=== PATIENT | male | born 1970 | race Caucasian/White ===

== ENCOUNTER 2024-06-11 11:13 | Emergency (ER) | payer BC, SELFPAY ==
[2024-06-11 11:21] VITALS: BP 149/97
[2024-06-11 12:23] VITALS: BP 134/95
[2024-06-11 12:30] VITALS: BMI 35.2
[2024-06-11 12:59] LABS: % Basophils 0.2 % (0-2); % Eosinophils 0.2 % (0-6); % Immature Granulocytes 0.5 % (0-0.5); % Lymphocytes 9.9 % (20.5-51.1); % Monocytes 6.3 % (1.7-9.3); % Neutrophils 82.9 % (42.2-75.2); Absolute Immature Granulocytes 0.1 10^3/uL (0-0.05); Absolute Lymphocytes 1.3 10^3/uL (1.2-3.4); Absolute Monocytes 0.8 10^3/uL (0.1-0.6); Absolute Neutrophils 10.7 10^3/uL (1.4-6.5); Hematocrit 41.7 % (39.0-52.0); Hemoglobin 14.2 g/dL (13.0-18.0); Mean Corp Hgb Conc. 34.1 g/dL (33.0-37.0); Mean Corpuscular Hgb 29.9 pg (27.0-31.0); Mean Corpuscular Volume 87.8 fL (80.0-94.0); Mean Platelet Volume 9.7 fL (7.4-10.4); Nucleated Red Blood Cells % 0 % (-); Platelet Count 251 10^3/uL (130-400); Red Blood Cell Count 4.75 10^6/uL (4.70-6.10); Red Cell Dist. Width 13.2 % (11.5-14.5); White Blood Cell Count 12.9 10^3/uL (4.8-10.8)
[2024-06-11 13:00] LABS: ALT (SGPT) 26 U/L (0-50); AST (SGOT) 21 U/L (17-59); Albumin 4.1 g/dl (3.5-5.0); Alkaline Phosphatase 64 U/L (38-126); Blood Urea Nitrogen 21 mg/dl (9-20); Calcium 8.9 mg/dl (8.4-10.2); Carbon Dioxide 31 mmol/L (22-30); Chloride 103 mmol/L (98-107); Estimated Creatinine Clearance 122 ml/min; Glucose 113 mg/dl (70-99); Potassium 4.6 mmol/L (3.5-5.1); Sodium 139 mmol/L (135-145); Total Bilirubin 0.4 mg/dl (0.2-1.3); Total Protein 6.7 g/dl (6.3-8.2); eGFR > 60.00
[2024-06-11 13:12] LABS: Troponin I < 0.012 ng/ml
--- NOTE | 2024-06-11 13:52 | ED.GENMED ---
History of Present Illness
General
Chief Complaint: Fainting/Passed Out
Time Seen by Provider: 06/11/24 12:39
History of Present Illness
History of Present Illness:
54-year-old male with no past medical history presents to the emergency department for evaluation of a syncopal event. He states that he felt lightheaded while outside working today, while attempting to come inside he tripped and fell and hurt his
left foot and ankle. He then came into the house and was seated on a chair when he had a syncopal event preceded by 1 episode of vomiting. He did strike his head when falling after the syncope. He notes that he is on steroids due to right elbow
bursitis and took a steroid this morning without eating or drinking
Review of Systems
Review of Systems
Allergies reviewed?: Yes
All Other Systems: ROS reviewed and negative except as documented in HPI and ROS
Phy Exam
Physical Exam
Physical Exam:
GEN: Well appearing, NAD, WDWN
HEENT: Oral mucosa moist, no scleral icterus
Cardiac: Regular rate and rhythm, no murmurs
Lung: No respiratory distress, no tachypnea
MSK: No gross deformity or injuries
Skin: Good color, no pallor or jaundice, no rashes
Neuro: AO x3, moves all extremities freely, cranial nerves II through XII grossly intact
Psych: Calm, cooperative
Course
Orders/Labs/Results
Orders:
Orders
06/11/24 11:25
EKG [Electrocardiogram (*1)] Urgent
Reason for Study: Syncope
EKG- Treatment ONCE
06/11/24 12:31
CT Head W/o Iv Contrast Urgent
Comment:
Reason For Exam: syncope
CR Ankle - Left Min 3 Views Urgent
Comment:
Reason For Exam: pain/foot
CR Foot - Left Min 3 Views Urgent
Comment:
Reason For Exam: pain/fall
06/11/24 12:39
Complete Blood Count/With Diff Urgent
Comprehensive Metabolic Panel Urgent
Troponin I Urgent
Abnormal Lab Results
06/11/24
12:39
WBC 12.9 H 10^3/uL
(4.8-10.8)
Abs Immat Gran (auto) 0.1 H 10^3/uL
(0-0.05)
Absolute Neuts (auto) 10.7 H 10^3/uL
(1.4-6.5)
Absolute Monos (auto) 0.8 H 10^3/uL
(0.1-0.6)
Neutrophils % 82.9 H %
(42.2-75.2)
Lymphocytes % 9.9 L %
(20.5-51.1)
Carbon Dioxide 31 H mmol/L
(22-30)
BUN 21 H mg/dl
(9-20)
Glucose 113 H mg/dl
(70-99)
06/11/24 12:39
06/11/24 12:39
Vital Signs
Initial and Last Documented VS:
Initial Vital Signs
Temp Pulse Resp BP Pulse Ox
97.8 F 71 16 149/97 98
06/11/24 11:21 06/11/24 11:21 06/11/24 11:21 06/11/24 11:21 06/11/24 11:21
Last Documented Vital Signs
Temp Pulse Resp BP Pulse Ox
97.8 F 67 15 134/95 98
06/11/24 11:21 06/11/24 12:45 06/11/24 12:45 06/11/24 12:23 06/11/24 13:27
MDM/Problems Addressed
MDM/Problems Addressed:
Workup is reassuring. This is likely a vasovagal event due to dehydration and current steroid use. No evidence of fracture on foot x-rays
*Critical Care Note
Total Time (30-74mins, 75-104mins- exclusive of procedures): Not Applicable
ED Attending Note
-
Portions of this chart may have been created with voice recognition software.� Occasional wrong word or��sound alike� substitutions may have occurred due to the inherent limitations of voice recognition software.
Discharge Plan
Departure
Patient Disposition: Home (Routine Discharge)
Date of Disposition: 06/11/24
Time of Disposition: 13:53
Patient with high blood pressure during this ER visit?: No
Discharge Problem:
Syncope, Acute pain of left foot, Closed head injury
Instructions: Syncope (Fainting) (DC)
Referrals:
Kyle Grimes, DO [Family Provider] -
Interventions
Interventions:
*Risk Screen - Suicide Last Done: 06/11/24 11:21
*General Assessment Last Done: 06/11/24 12:26
*Neglect/Abuse Screening Last Done: 06/11/24 11:21
ED- Fall Risk Assessment Last Done: 06/11/24 12:26
*ED COVID-19 Vaccine History Last Done: 06/11/24 12:26
*Nursing Disposition Last Done: 06/11/24 14:16
ED- Cardiac Assessment Last Done: 06/11/24 12:28
ED- Neurological Assessment Last Done: 06/11/24 12:28
Discharge Date and Time
Discharge Date/Time: 06/11/24 14:22
Print Language: SWISS
== END 2024-06-11 14:22 | disposition home or self-care (01) ==
LOC: EMR 11:13
PROVIDERS: EMERGENCY PHYSICIAN Student in an Organized Health Care Education/Training Program; FAMILY PHYSICIAN Family Medicine
DX: R55 Syncope and collapse (principal); S09.90XA Unspecified injury of head, initial encounter; M79.672 Pain in left foot; W01.0XXA Fall on same level from slipping, tripping and stumbling without subsequent striking against object, initial encounter; E86.0 Dehydration; M70.31 Other bursitis of elbow, right elbow; Z88.0 Allergy status to penicillin
CPT/HCPCS: 99285; 70450; 73610; 73630; 80053; 84484; 85025; 93005

== ENCOUNTER 2024-09-01 06:19 | Day surgery (SDC) | payer BC, SELFPAY | END 2024-09-01 14:16 | disposition home or self-care (01) | LOC: GI 06:19 | PROVIDERS: ATTENDING PHYSICIAN Internal Medicine Gastroenterology | DX: D12.3 Benign neoplasm of transverse colon (principal); K57.30 Diverticulosis of large intestine without perforation or abscess without bleeding; K64.8 Other hemorrhoids; R19.5 Other fecal abnormalities | CPT/HCPCS: 45385; 88305 ==